=== PATIENT | female | born 1990 | race Caucasian/White ===

== ENCOUNTER 2016-08-30 20:04 | Emergency (ER) | payer OTHER ==
[~2016-08-30] VITALS: Ht 152.4 cm; Wt 54.8 kg
[2016-08-30 21:55] VITALS: BP 123/70
== END 2016-08-30 21:57 | disposition home or self-care (01) ==
LOC: EME 20:04
PROC: 3E0234Z Introduction of Serum, Toxoid and Vaccine into Muscle, Percutaneous Approach (ICD-10-PCS; principal; 2016-08-30)
DX: S93.602A Unspecified sprain of left foot, initial encounter (principal); S80.212A Abrasion, left knee, initial encounter; W01.198A Fall on same level from slipping, tripping and stumbling with subsequent striking against other object, initial encounter
CPT/HCPCS: 73630; 99281; 99284